=== PATIENT | male | born 1935 | race Caucasian/White ===

== ENCOUNTER 2023-04-28 16:54 | Outpatient (REF) | payer MEDICARE, MEDICAID, SELFPAY ==
[2023-04-28 22:18] LABS: HCT 42.6 % (40.0-50.0); HGB 13.9 g/dL (13.5-17.5); MCH 28.3 pg (27.0-33.0); MCHC 32.6 % (32.0-36.0); MCV 87 fL (80-95); MPV 9.4 fL (8.0-11.0); Platelet Count 271 10^3/uL (130-400); RBC 4.92 10^6/uL (4.36-5.78); RDW 14.3 % (11.8-14.1); RDW-SD 45.6 fL
[2023-04-28 22:42] LABS: ALT 36 U/L (16-63); AST 18 U/L (15-37); Albumin 3.9 g/dL (3.4-5.0); Alkaline Phosphatase 119 U/L (46-116); Anion Gap 7.2 mmol/L (3-11); BUN 14 mg/dL (7-18); Bilirubin, Total 0.4 mg/dL (0.2-1.0); CO2 28.8 mmol/L (21.0-32.0); CREATININE 0.8 mg/dL (0.70-1.30); Calcium 9.6 mg/dL (8.5-10.1); Calculated LDL 96 mg/dL (<100); Chloride 102 mmol/L (98-107); Cholesterol 172 mg/dL (<200); Estimated GFR 85.65 (mL/min/1.73m2); Glucose 97 mg/dL (74-106); HDL Cholesterol 68 mg/dL (40-60); Potassium 3.9 mmol/L (3.5-5.1); Sodium 138 mmol/L (136-145); Total Protein 7.4 g/dL (6.4-8.2); Triglyceride 43 mg/dL (<150)
== END 2023-04-28 16:55 | disposition home or self-care (01) ==
LOC: NCHCN 16:54
PROVIDERS: Visit Provider Family Medicine
DX: I10 Essential (primary) hypertension (principal)
CPT/HCPCS: 80053; 80061; 85027

== ENCOUNTER 2023-06-12 11:04 | Outpatient (CLI) | payer MEDICARE, MEDICAID, SELFPAY ==
--- NOTE | 2023-06-12 11:00 | RT.EKG_ITS ---
APPROVED REPORT Exam: Resting ECG Reason for Exam: cardiac evaluation Patient Location: O HR:71 bpm ECG Measurements Heart Rate 71 AXIS CA [id number] P 0 QRSd 140 QRS 18 QT 424 T -77 QTc 461 Conclusion Atrial fibrillation Right bundle branch block...QRSd>120, terminal axis(90,270)
== END 2023-06-12 11:05 | disposition home or self-care (01) ==
LOC: DI.CARD 11:05
PROVIDERS: Visit Provider Internal Medicine Cardiovascular Disease
DX: I44.0 Atrioventricular block, first degree (principal); I73.9 Peripheral vascular disease, unspecified
CPT/HCPCS: 93010

== ENCOUNTER → 2023-06-12 13:47 | Outpatient (BNVA) | payer MEDICARE, MEDICAID, SELFPAY | PROVIDERS: Visit Provider Internal Medicine Cardiovascular Disease | DX: I10 Essential (primary) hypertension (principal); R60.0 Localized edema; I48.91 Unspecified atrial fibrillation; I73.9 Peripheral vascular disease, unspecified; I44.0 Atrioventricular block, first degree | CPT/HCPCS: 93005; 99203 ==

== ENCOUNTER 2024-11-03 16:05 | Outpatient (REF) | payer MEDICARE, MEDICAID, SELFPAY ==
[2024-11-03 21:24] LABS: Anion Gap 6.9 mmol/L (3-11); BUN 17 mg/dL (7-18); CO2 32.1 mmol/L (21.0-32.0); CREATININE 0.8 mg/dL (0.70-1.30); Calcium 9.6 mg/dL (8.5-10.1); Chloride 103 mmol/L (98-107); Estimated GFR 85.12 (mL/min/1.73m2); Glucose 89 mg/dL (74-106); Potassium 4.2 mmol/L (3.5-5.1); Sodium 142 mmol/L (136-145)
[2024-11-03 21:56] LABS: HCT 41.5 % (40.0-50.0); MCH 29.4 pg (27.0-33.0); MCHC 33.7 % (32.0-36.0); MCV 87 fL (80-95); MPV 9.3 fL (8.0-11.0); Platelet Count 225 10^3/uL (130-400); RBC 4.76 10^6/uL (4.36-5.78); RDW 13.5 % (11.8-14.1); RDW-SD 43.2 fL; WBC 7.57 10^3/uL (4.4-10.8)
== END 2024-11-03 16:06 | disposition home or self-care (01) ==
LOC: NCHCN 16:05
PROVIDERS: PCP Family Medicine; Visit Provider Family Medicine
DX: I10 Essential (primary) hypertension (principal); Z13.0 Encounter for screening for diseases of the blood and blood-forming organs and certain disorders involving the immune mechanism
CPT/HCPCS: 80048; 85027

== ENCOUNTER 2025-05-03 15:10 | Outpatient (REF) | payer MEDICARE, MEDICAID, SELFPAY ==
[2025-05-03 17:06] LABS: COMMENT (LAB VIEW ONLY) 13.84 mg/dL; Microalb ug/mg Crea 19.5 ug/mg Cr
== END 2025-05-03 15:11 | disposition home or self-care (01) ==
LOC: NCHCN 15:10
PROVIDERS: PCP Family Medicine; Visit Provider Family Medicine
DX: I10 Essential (primary) hypertension (principal)
CPT/HCPCS: 82043; 82570